=== PATIENT | female | born 1960 | race Hispanic/Latino ===

== ENCOUNTER 2023-07-11 11:58 | Emergency (ER) | payer BC, OTHER ==
[~2023-07-11] VITALS: Ht 157.5 cm; Wt 79.4 kg
[2023-07-11] MEDS ORDERED: KETOROLAC 60 MG VIAL (30MG/ML) IM STA (13:06)
[2023-07-11] MEDS ORDERED: DEXAMETHASONE SOD PHOSPHATE 4 MG/ML 1ML VIAL IM STA (13:06)
[2023-07-11] MEDS ORDERED: LORA10TA7 PO (13:20)
[2023-07-11] MEDS ORDERED: PRED5TAB PO (13:20)
[2023-07-11 14:58] VITALS: BP 125/78; PULSE 79; RESP 18; O2SAT 98
== END 2023-07-11 15:29 | disposition home or self-care (01) ==
LOC: EDH 11:58
DX: S60.463A Insect bite (nonvenomous) of left middle finger, initial encounter (principal); M79.645 Pain in left finger(s); I10 Essential (primary) hypertension; Z88.0 Allergy status to penicillin; W57.XXXA Bitten or stung by nonvenomous insect and other nonvenomous arthropods, initial encounter; Y93.89 Activity, other specified; Y92.89 Other specified places as the place of occurrence of the external cause; Y99.8 Other external cause status
CPT/HCPCS: 99284; 96372 ×2; J1100; J1885